=== PATIENT | male | born 1935 | race Two or more races ===

== ENCOUNTER 2023-08-07 14:54 | Emergency (ER) | payer MEDICAID ==
[~2023-08-07] VITALS: Ht 160 cm; Wt 52.7 kg
[2023-08-07 15:57] LABS: Basophils # (auto) 0.1 10 ^3/uL (0-0.2); Basophils % (auto) 1.3 % (0.0-2.0); Eosinophils # (auto) 0.3 10 ^3/uL (0-0.8); Eosinophils % (auto) 5.5 % (0.0-7.0); Hematocrit 33.8 % (41.0-53.0); Hemoglobin 11.4 g/dL (13.5-17.5); Lymphocytes # (auto) 1.6 10 ^3/uL (0.4-5.4); Lymphocytes % (auto) 25.4 % (10.0-50.0); Mean Corpuscular Hemoglobin 30.1 pg (28.0-32.0); Mean Corpuscular Hgb Conc. 33.8 g/dL (32.0-36.0); Mean Corpuscular Volume 88.9 fL (80.0-100.0); Monocytes # (auto) 0.4 10 ^3/uL (0-1.3); Monocytes % (auto) 5.9 % (0.0-12.0); Neutrophils # (auto) 3.8 10 ^3/uL (1.6-8.6); Neutrophils % (auto) 61.9 % (37.0-80.0); Nucleated Red Blood Cells % 0.1 %; Red Cell Distribution Width 13.9 % (11.8-14.3); White Blood Cell 6.1 10^3/uL (4.4-10.8)
[2023-08-07 16:09] LABS: Chloride 115 mmol/L (98-107); Sodium 142 mmol/L (136-145)
[2023-08-07 16:10] LABS: Anion Gap 8 (5-15); Carbon Dioxide 19 mmol/L (20-30)
[2023-08-07 16:11] LABS: Calcium 9.2 mg/dL (8.5-10.1)
[2023-08-07 16:15] LABS: BUN/Creatinine Ratio 36.8 (10.0-20.0); Blood Urea Nitrogen 42 mg/dL (9-23); Glucose 107 mg/dL (74-106)
[2023-08-07 16:20] LABS: Potassium 5.7 mmol/L (3.5-5.1)
[2023-08-07] MEDS: CALCIUM GLUC 1,000mg/50ml-NS 50 ML IV ONE (16:30)
[2023-08-07] MEDS: FUROSEMIDE 40 MG/4 ML VIAL IV ONE (16:45)
[2023-08-07] MEDS: ALBUTEROL SULF 2.5 MG/0.5ML(0.5%) NEB SOLN NEB ONE (16:58)
[2023-08-07] MEDS: SODIUM ZIRCONIUM CYCL 10 GM PAK PO ONE (18:30)
[2023-08-07 19:40] VITALS: PULSE 112; RESP 21; O2SAT 98
[2023-08-07 20:15] VITALS: PULSE 111; RESP 20; TEMP 98.1; O2SAT 95
[2023-08-07] MEDS: HYDROcodone-ACET 5/325MG TAB PO ONE (21:03)
[2023-08-07 23:33] VITALS: BP 126/51; PULSE 79; RESP 17; O2SAT 96
== END 2023-08-07 23:43 | disposition home or self-care (01) ==
LOC: ER 14:54
DX: E87.5 Hyperkalemia (principal); I10 Essential (primary) hypertension; Z79.899 Other long term (current) drug therapy
CPT/HCPCS: 36415; 80048; 84132; 85025; 93005; 94640; 96374; 96375; 99285; J0613; J1940